=== PATIENT | female | born 1985 | race Caucasian/White ===

== ENCOUNTER 2018-10-14 20:11 | Emergency (ER) | payer OTHER ==
[2018-10-14 20:18] VITALS: BP 130/89; PULSE 83; RESP 18; TEMP 98.3
[2018-10-14] MEDS ORDERED: PROPARACAINE 0.5% OPHTH DROPS 15 ML BTL LEFT EYE STA (20:20)
[2018-10-14] MEDS ORDERED: GENTAMICIN 0.3% OPHTH DROPS 5 ML BTL RIGHT EYE STA (20:39)
[2018-10-14] MEDS ORDERED: TOBRAMYCIN 0.3% OPHTH DROPS 5 ML BTL RIGHT EYE STA (20:40)
--- NOTE | 2018-10-14 20:46 | ED ---
General Adult HPI - General Chief complaint: Eye Problems Stated complaint: Eye injury Time Seen by Provider: 10/14/18 20:20 Source: patient, family, RN notes reviewed, old records reviewed Mode of arrival: ambulatory Limitations: no limitations - History of Present Illness Initial comments: 33-year-old female patient with no pertinent past medical history presents to ED for right corneal abrasion. Patient 38 yesterday she was moving her mattress when slipped, patient reports that while grabbing at she scratched her right eye with her thumb nail. Patient brought that she is having some pain in her right eye. She states that her vision is at baseline. Patient was seen at urgent care and diagnosed a corneal abrasion, she has been recommended to present to ER. Patient is a contact lens user. Patient denies any prior ocular or ophthalmologic issues. Systemic: Pt denies fatigue, myalgia, fever/chills, rash. Pt denies weakness, night sweats, weight loss. Neuro: Pt denies headache, visual disturbances, syncope or pre-syncope. HEENT: Pt denies ocular discharge or irritation, otalgia, rhinorrhea, pharyngitis or notable lymphadenopathy. Cardiopulmonary: Pt denies chest pain, SOB, heart palpitations, dyspnea on exertion. Abdominal/GI: Pt denies abdominal pain, n/v/d. : Pt denies dysuria, burning w/ urination, frequency/urgency. Denies new onset urinary or bowel incontinence. MSK: Pt denies myalgia, loss of strength or function in extremities. Neuro: Pt denies new onset weakness, paresthesias. - Related Data Previous Rx's Medication Instructions Recorded Tobramycin 0.3% Ophth Soln [Tobrex 2 drop RIGHT EYE Q6HR 5 Days #1 10/14/18 0.3% Ophth Soln] bottle Allergies Allergy/AdvReac Type Severity Reaction Status Date / Time No Known Allergies Allergy Verified 10/14/18 20:24 Review of Systems ROS Statement: Those systems with pertinent positive or pertinent negative responses have been documented in the HPI. ROS Other: All systems not noted in ROS Statement are negative. Past Medical History Past Medical History: No Reported History History of Any Multi-Drug Resistant Organisms: None Reported Past Surgical History: Section Additional Past Surgical History / Comment(s): D&C Past Psychological History: No Psychological Hx Reported Smoking Status: Current every day smoker Past Alcohol Use History: Occasional Past Drug Use History: None Reported General Exam - General Exam Comments Initial Comments: Constitutional: NAD, AOX3, Pt has pleasant affect. HEENT: NC/AT, trachea midline, neck supple, no lymphadenopathy. Posterior pharynx non erythematous, without exudates. External ears appear normal, without discharge. Mucous membranes moist. Eyes PERRLA, EOM intact. Mild injection noted towards lateral canthus. Cornea abrasion noted at approximately 7:00. No foreign body noted. There is no scleral icterus. No pallor noted. Cardiopulmonary: RRR, no murmurs, rubs or gallops, no JVD noted. Lungs CTAB in anterior and posterior guevara. No peripheral edema. Abdominal exam: Abdomen soft and non-distended. Abdomen non-tender to palpation in all 4 quadrants. Bowel sounds active in LLQ. No hepatosplenomegaly. No ecchymosis Neuro: CN II-XII grossly intact. No nuchal rigidity. MSK: No posterior calf tenderness bilaterally, homans sign negative bilaterally. Posterior tibialis and radial pulse +2 bilaterally. Sensation intact in upper and lower extremities. Full active ROM in upper and lower extremities, 5/5 stregnth. Limitations: no limitations Course Vital Signs 10/14/18 20:14 Temperature 98.3 F Pulse Rate 83 Respiratory 18 Rate Blood Pressure 130/89 O2 Sat by Pulse 99 Oximetry Medical Decision Making - Medical Decision Making 33-year-old female patient with no pertinent past medical history presents to ED for right corneal abrasion. Patient 38 yesterday she was moving her mattress when slipped, patient reports that while grabbing at she scratched her right eye with her thumb nail. Patient brought that she is having some pain in her right eye. She states that her vision is at baseline. Patient was seen at urgent care and diagnosed a corneal abrasion, she has been recommended to present to ER. Patient is a contact lens user. Patient denies any prior ocular or ophthalmologic issues. Patient was in stable, afebrile. Physical exam displayed: Eyes PERRLA, EOM intact. Mild injection noted towards lateral canthus. Cornea abrasion noted at approximately 7:00. No foreign body noted. There is no scleral icterus. No pallor noted. Patient administered tobramycin drops in ED. Patient discharged with upper mycin and ophthalmology follow-up tomorrow. She will return to ER if condition worsens in any way. Return precautions discussed, patient verbalized understanding. Pt states that she is not . Case discussed with Dr. Pantoja. Disposition Clinical Impression: Corneal abrasion, right Disposition: HOME SELF-CARE Condition: Stable Instructions (If sedation given, give patient instructions): Corneal Abrasion (ED) Additional Instructions: Patient to adhere to previously discussed treatment plan and will take medication(s) as directed. Patient to follow up with PCP in 1-2 days. Patient to return to ED if symptoms do not improve. Follow-up with primary care provider and ophthalmology consult tomorrow. Take medication as directed. Return to ER immediately if condition worsens. No contact lens use until optho follow up. Prescriptions: Tobramycin 0.3% Ophth Soln [Tobrex 0.3% Ophth Soln] 2 drop RIGHT EYE Q6HR 5 Days #1 bottle Is patient prescribed a controlled substance at d/c from ED?: No Referrals: Addis Hooper MD [Primary Care Provider] - 1-2 days Wilbur Honeycutt MD [STAFF PHYSICIAN] - 1-2 days
== END 2018-10-14 20:52 | disposition home or self-care (01) ==
LOC: EC 20:11
DX: S05.01XA Injury of conjunctiva and corneal abrasion without foreign body, right eye, initial encounter (principal); F17.200 Nicotine dependence, unspecified, uncomplicated; W01.198A Fall on same level from slipping, tripping and stumbling with subsequent striking against other object, initial encounter; Y93.89 Activity, other specified
CPT/HCPCS: 99283

== ENCOUNTER → 2020-08-13 | Outpatient (CLI) | payer OTHER ==
--- NOTE | 2020-08-13 12:40 | CONS ---
CONSULTATION DATE OF SERVICE: 08/13/2020. This 35-year-old lady had been evaluated in the sleep center for possible obstructive sleep apnea-hypopnea syndrome. HISTORY OF PRESENT ILLNESS/SLEEP-WAKE EVALUATION: Patient usual sleep schedule on weekdays from 10:30 p.m. to 6 a.m.; on weekends from 11:30 p.m. to 7:30 to 8 a.m. No problems with falling asleep, although she has TV in bedroom. She sleeps on the side position. She snores and has witnessed episodes of stopped breathing during sleep. In the morning, patient wakes up tired, has problems with memory. Goodman Sleepiness Scale is 4. She may take one nap during the day. Usually no vivid dreams during the nap. No history of hypnagogic hallucinations or sleep paralysis or cataplexy. PAST MEDICAL HISTORY: Positive for headaches, acid reflux, and asthma. SOCIAL HISTORY: Positive for smoking, presently trying to quit smoking 1-2 cigarettes a day. Alcohol consumption occasional. MEDICATIONS: None at the present time. FAMILY HISTORY: Hypertension, cancer. REVIEW OF SYSTEMS: Snoring, episodes of stopped breathing during sleep. PHYSICAL EXAMINATION: GENERAL: lady without distress. VITAL SIGNS: BP 117/69, HR 82, RR 12, height 5 feet 5 inches, Weight 163.4, BMI 27, temperature 98.3, oxygen saturation at room air 98%. HEENT: PERRLA, EOMI. Oropharynx low position of soft palate. Mallampati 3-4. NECK: 14 inches in circumference. LUNGS: Clear to percussion and to auscultation. Good air exchange. No wheezing or rhonchi. HEART: S1, S2 regular. No murmurs, gallops, or rubs. ABDOMEN: Soft and nontender. Bowel sounds are present. No organomegaly appreciated. EXTREMITIES: No clubbing or cyanosis. HULL AND DECK REMOVER: Awake, alert, and oriented X3. Cranial nerves 2 to 7 intact. There is no fasciculation or atrophy. noted. No focal deficits observed. IMPRESSION: 1. Snoring, witnessed episodes of stopped breathing during sleep, low position of soft palate, Mallampati 3-4, obstructive sleep apnea-hypopnea syndrome. 2. Headaches. 3. Acid reflux. 4. History of asthma. 5. Status post . PLAN: 1. Home sleep apnea test to confirm obstructive sleep apnea-hypopnea syndrome. 2. CPAP/BiPAP titration if sleep study confirms obstructive sleep apnea-hypopnea syndrome. 3. Preferable position during sleep on the side. 4. No driving if patient feels any sleepiness. 5. I will see patient for follow up visit to explain results of testing and following plan. Thank you very much for referring this patient for consultation. Sincerely, Adalberto Melvin MD, PhD, FAASM Diplomat of [employer] Gas Manager of [facility] MMODL / IJN: [id number] /
== END ==
LOC: SLEEP 10:50
PROVIDERS: ATTEND Internal Medicine
DX: G47.33 Obstructive sleep apnea (adult) (pediatric) (principal); R51.9 Headache, unspecified; K21.9 Gastro-esophageal reflux disease without esophagitis; J45.909 Unspecified asthma, uncomplicated; Z98.890 Other specified postprocedural states; F17.210 Nicotine dependence, cigarettes, uncomplicated
CPT/HCPCS: 99211

== ENCOUNTER → 2020-11-05 | Outpatient (CLI) | payer OTHER ==
--- NOTE | 2020-11-05 20:21 | SFUN ---
SLEEP CENTER FOLLOW UP NOTE DATE OF SERVICE: 11/05/2020 35 -year-old lady who has been followed in Sleep Center to discuss results of the sleep study and following plan. I discussed results of sleep study with patient in details. Respiratory channel showed 27 apneas which included 17 central apneas, 9 obstructive apneas and 1 unclassified apnea and 38 hypopneas with total apnea-hypopnea index 8 with 474 episodes of snoring events. Patient continued to have sleepiness during the day. Hilliard Sleepiness Scale today is 10. Episodes of headaches, acid reflux. PHYSICAL EXAMINATION: GENERAL: Patient in no distress. BP 121/71, HR 77, RR 15, height 5 feet 5-1/4 inches, weight 160.6, BMI 26.4, temperature 97.8, oxygen saturation at room air 99%. Oropharynx low position of soft palate, Mallampati 3-4. NECK: Supple, no JVD. Thyroid is not palpable. LUNGS: Clear to percussion and to auscultation. Good air exchange. No wheezing or rhonchi. HEART: S1, S2 regular. No murmurs, gallops, or rubs. ABDOMEN: Soft and nontender. Bowel sounds are present. No organomegaly appreciated. EXTREMITIES: No clubbing or cyanosis. TELESALES CONSULTANT: Awake, alert, and oriented X3. Cranial nerves 2 to 7 intact. There is no fasciculation or atrophy. noted. No focal deficits observed. IMPRESSION: 1. Obstructive sleep apnea-hypopnea syndrome in mild range with daytime sleepiness. 2. Headaches. 3. Acid reflux. 4. History of asthma. 5. Status post . PLAN: 1. Patient will be started on treatment with AutoPAP and to use equipment every night for the whole night. 2. Sleep hygiene with regular time in bed for 7-1/2 to 8 hours. 3. No driving if feeling sleepiness. 4. Follow-up visit. The patient will be started on treatment with CPAP to evaluate clinical response on treatment, compliance with treatment and make any adjustments with the mask, fitting, pressure and humidification. Adalberto Melvin MD, PhD, FAASM Diplomat of [employer] Financial Sales Representative of [facility] MMODL / IJN: [id number] /
== END | disposition home or self-care (01) ==
LOC: SLEEP 10:40
PROVIDERS: ATTEND Internal Medicine
DX: G47.33 Obstructive sleep apnea (adult) (pediatric) (principal); J45.909 Unspecified asthma, uncomplicated; K21.9 Gastro-esophageal reflux disease without esophagitis; Z98.890 Other specified postprocedural states

== ENCOUNTER 2022-11-05 10:52 | Emergency (ER) | payer OTHER ==
[2022-11-05 10:57] VITALS: RESP 20; TEMP 98.1
[2022-11-05] MEDS ORDERED: SODIUM CHLORIDE 0.9% 1,000 ML IV STA (11:09)
[2022-11-05] MEDS ORDERED: ONDANSETRON 4 MG/2 ML VIAL IVP STA (11:09)
[2022-11-05 12:02] LABS: Basophils % (A) 0 %; Eosinophils # (A) 0.2 k/uL (0-0.7); Eosinophils % (A) 3 %; HCT 44.3 % (34.0-46.0); HGB 14.5 gm/dL (11.4-16.0); Lymphocytes # (A) 1.1 k/uL (1.0-4.8); Lymphocytes % (A) 16 %; MCH 31.1 pg (25.0-35.0); MCHC 32.8 g/dL (31.0-37.0); MCV 94.8 fL (80.0-100.0); Mean Platelet Volume 8.6; Monocytes # (A) 0.4 k/uL (0-1.0); Monocytes % (A) 6 %; Neutrophils # (A) 5.2 k/uL (1.3-7.7); Neutrophils % (A) 73 %; Platelet Count 294 k/uL (150-450); RBC 4.67 m/uL (3.80-5.40); RDW 12.5 % (11.5-15.5); WBC 7.2 k/uL (3.8-10.6)
[2022-11-05 12:12] LABS: Appearance,Urine Cloudy (Clear); Bacteria,Urine Occasional /hpf; Bilirubin,Urine Negative (Negative); Blood,Urine Small (Negative); Color,Urine Yellow; Glucose,Urine (UA) Negative (Negative); Ketones,Urine Negative (Negative); Leukocyte Esterase,Urine Negative (Negative); Mucus,Urine Few /hpf; Nitrite,Urine Negative (Negative); PH, Urine 5.5 (5.0-8.0); Protein,Urine Negative (Negative); RBC,Urine 1 /hpf (0-5); Specific Gravity,Urine 1.024 (1.001-1.035); Squamous Epithelial Cell,Urine 10 /hpf (0-4); Urobilinogen,Urine <2.0 mg/dL (<2.0); WBC,Urine 3 /hpf (0-5)
[2022-11-05 12:16] LABS: ALT 29 U/L (4-34); AST 27 U/L (14-36); African American GFR (CKD) >90 (>60 ml/min/1.73 sqM); Albumin 4.8 g/dL (3.5-5.0); Alkaline Phosphatase 65 U/L (38-126); Amylase 43 U/L (30-110); Anion Gap 9 mmol/L; Blood Urea Nitrogen 15 mg/dL (7-17); Calcium 9.3 mg/dL (8.4-10.2); Carbon Dioxide 25 mmol/L (22-30); Chloride 103 mmol/L (98-107); Glucose 105 mg/dL (74-99); Lipase 123 U/L (23-300); Non-African American GFR(CKD) >90 (>60 ml/min/1.73 sqM); Potassium 4.1 mmol/L (3.5-5.1); Sodium 137 mmol/L (137-145); Total Bilirubin 0.6 mg/dL (0.2-1.3); Total Protein 8.3 g/dL (6.3-8.2)
--- NOTE | 2022-11-05 12:20 | ED ---
General Adult HPI - General Chief complaint: Abdominal Pain Stated complaint: back pain - sent by urgent care Time Seen by Provider: 11/05/22 10:58 Source: patient, RN notes reviewed Mode of arrival: ambulatory Limitations: no limitations - History of Present Illness Initial comments: 37-year-old female presents emergency department chief complaint of right flank pain. Patient states that it started yesterday as a mild pain but has progressively gotten worse. She states that the pain occasionally radiates into the groin. She states that she is unable to get comfortable. She also reports associated nausea without vomiting. She states that she went to urgent care earlier today and states that there was blood in her urine there on UA which she states is not visible. She denies fever, chills, urinary frequency, dysuria. - Related Data Home Medications Medication Instructions Recorded Confirmed No Known Home Medications 11/05/22 11/05/22 Allergies Allergy/AdvReac Type Severity Reaction Status Date / Time No Known Allergies Allergy Verified 11/05/22 12:53 Review of Systems ROS Statement: Those systems with pertinent positive or pertinent negative responses have been documented in the HPI. ROS Other: All systems not noted in ROS Statement are negative. Past Medical History Past Medical History: No Reported History History of Any Multi-Drug Resistant Organisms: None Reported Past Surgical History: Section Additional Past Surgical History / Comment(s): D&C Past Psychological History: No Psychological Hx Reported Smoking Status: Current some day smoker Past Alcohol Use History: Occasional Past Drug Use History: None Reported General Exam Limitations: no limitations General appearance: alert, in no apparent distress Head exam: Present: atraumatic, normocephalic, normal inspection Eye exam: Present: normal appearance, PERRL, EOMI. Absent: scleral icterus, conjunctival injection, periorbital swelling ENT exam: Present: normal exam, mucous membranes moist Neck exam: Present: normal inspection. Absent: tenderness, meningismus, lymphadenopathy Respiratory exam: Present: normal lung sounds bilaterally. Absent: respiratory distress, wheezes, rales, rhonchi, stridor Cardiovascular Exam: Present: regular rate, normal rhythm, normal heart sounds. Absent: systolic murmur, diastolic murmur, rubs, gallop, clicks GI/Abdominal exam: Present: soft, tenderness, normal bowel sounds. Absent: distended, guarding, rebound, rigid Extremities exam: Present: normal inspection, full ROM, normal capillary refill. Absent: tenderness, pedal edema, joint swelling, calf tenderness Back exam: Present: normal inspection Neurological exam: Present: alert, oriented X3 Psychiatric exam: Present: normal affect, normal mood Skin exam: Present: warm, dry, intact, normal color. Absent: rash Course Vital Signs 11/05/22 11/05/22 11/05/22 10:54 11:52 15:18 Temperature 98.1 F Pulse Rate 90 85 Respiratory 20 20 Rate Blood Pressure 143/96 131/85 135/90 O2 Sat by Pulse 99 97 Oximetry Medical Decision Making - Medical Decision Making Was pt. sent in by a medical professional or institution (, PA, MILKING WORKER, urgent care, hospital, or jail...) When possible be specific @ -No Did you speak to anyone other than the patient for history (EMS, parent, family, police, friend...)? What history was obtained from this source @ -No Did you review nursing and triage notes (agree or disagree)? Why? @ -I reviewed and agree with nursing and triage notes Were old charts reviewed (outside hosp., previous admission, EMS record, old EKG, old radiological studies, urgent care reports/EKG's, jail records)? Report findings @ -No old charts were reviewed Differential Diagnosis (chest pain, altered mental status, abdominal pain women, abdominal pain men, vaginal bleeding, weakness, fever, dyspnea, syncope, headache, dizziness, GI bleed, back pain, seizure, CVA, palpatations, mental health, musculoskeletal)? @ -Differential Abdominal Pain Women: Appendicitis, Cholecystitis, diverticulosis, ischemic bowel, pancreatitis, hepatitis, UTI, gastroenteritis, AAA, incarcerated hernia, bowel obstruction, constipation, inflammatory bowel, hepatitis, peptic ulcer disease, splenic infarction, perforated viscus, vulvitis, ovarian torsion, PID, kidney stone, placenta abruption, this is not meant to be an all-inclusive list EKG interpreted by me (3pts min.). @ -None X-rays interpreted by me (1pt min.). @ -None done CT interpreted by me (1pt min.). @ -CT abdomen and pelvis without contrast showed no hydronephrosis or nephrolithiasis, asymmetric prominence of the right ovary for which pelvic ultrasound is recommended, diverticulosis without evidence of diverticulitis, small hiatal hernia with mild distal wall esophageal thickening U/S interpreted by me (1pt. min.). @ -Pelvic ultrasound showed complex lesion on the right ovary radiologist recommended short-term follow-up following next normal menstrual period What testing was considered but not performed or refused? (CT, X-rays, U/S, labs)? Why? @ -None What meds were considered but not given or refused? Why? @ -pain medication was considered but patient did not want any when asked or rechecked Did you discuss the management of the patient with other professionals (professionals i.e. , PA, MILKING WORKER, lab, RT, psych nurse, executive secretary social welfare, insulating machine operator, teacher, community liaison officer, piano case maker)? Give summary @ -No Was smoking cessation discussed for >3mins.? @ -No Was critical care preformed (if so, how long)? @ -No Were there social determinants of health that impacted care today? How? (Homelessness, low income, unemployed, alcoholism, drug addiction, transportation, low edu. Level, literacy, decrease access to med. care, long-term, rehab)? @ -No Was there de-escalation of care discussed even if they declined (Discuss DNR or withdrawal of care, Hospice)? DNR status @ -No What co-morbidities impacted this encounter? (DM, HTN, Smoking, COPD, CAD, Cancer, CVA, ARF, Chemo, Hep., AIDS, mental health diagnosis, sleep apnea, morbid obesity)? @ -None Was patient admitted / discharged? Hospital course, mention meds given and route, prescriptions, significant lab abnormalities, going to OR and other pertinent info. @ -Discharged. Patient presented to the emergency department with chief complaint of right flank pain radiating to the lower abdomen. Patient given dose of zofran IV and 1L of fluids and reported improvement in her symptoms. CBC, CMP within normal limits. UA showed small blood, will send for culture. CT abd pelvis showed no evidence for nephrolithiasis, asymmetric prominence of the right ovary for which the radiologist recommended pelvic ultrasound. US showed possible complex lesion on right ovary and recommended follow up. Discussed results of imaging with patient. Patient advised to follow up with gynecology and information was given. Patient discharged in stable condition. Case discussed with my attending, Dr. Angulo. Undiagnosed new problem with uncertain prognosis? @ -No Drug Therapy requiring intensive monitoring for toxicity (Heparin, Nitro, Insulin, Cardizem)? @ -No Were any procedures done? @ -No Diagnosis/symptom? @ -abdominal pain Acute, or Chronic, or Acute on Chronic? @ -acute Uncomplicated (without systemic symptoms) or Complicated (systemic symptoms)? @ -Uncomplicated Side effects of treatment? @ -No Exacerbation, Progression, or Severe Exacerbation? @ -No Poses a threat to life or bodily function? How? (Chest pain, [place], [place], pneumonia, PE, COPD, DKA, ARF, appy, cholecystitis, CVA, Diverticulitis, Homicidal, Suicidal, threat to staff... and all critical care pts) @ -No - Lab Data Result diagrams: 11/05/22 11:46 11/05/22 11:46 Lab Results 11/05/22 11/05/22 11/05/22 Range/Units 11:46 11:46 11:46 WBC 7.2 (3.8-10.6) k/uL RBC 4.67 (3.80-5.40) m/uL Hgb 14.5 (11.4-16.0) gm/dL Hct 44.3 (34.0-46.0) % MCV 94.8 (80.0-100.0) fL MCH 31.1 (25.0-35.0) pg MCHC 32.8 (31.0-37.0) g/dL RDW 12.5 (11.5-15.5) % Plt Count 294 (150-450) k/uL MPV 8.6 Neutrophils % 73 % Lymphocytes % 16 % Monocytes % 6 % Eosinophils % 3 % Basophils % 0 % Neutrophils # 5.2 (1.3-7.7) k/uL Lymphocytes # 1.1 (1.0-4.8) k/uL Monocytes # 0.4 (0-1.0) k/uL Eosinophils # 0.2 (0-0.7) k/uL Basophils # 0.0 (0-0.2) k/uL Sodium (137-145) mmol/L Potassium (3.5-5.1) mmol/L Chloride (98-107) mmol/L Carbon Dioxide (22-30) mmol/L Anion Gap mmol/L BUN (7-17) mg/dL Creatinine (0.52-1.04) mg/dL Est GFR (CKD-EPI)AfAm (>60 ml/min/1.73 sqM) Est GFR (CKD-EPI)NonAf (>60 ml/min/1.73 sqM) Glucose (74-99) mg/dL Calcium (8.4-10.2) mg/dL Total Bilirubin (0.2-1.3) mg/dL AST (14-36) U/L ALT (4-34) U/L Alkaline Phosphatase (38-126) U/L Total Protein (6.3-8.2) g/dL Albumin (3.5-5.0) g/dL Amylase (30-110) U/L Lipase (23-300) U/L Urine Color Yellow Urine Appearance Cloudy H (Clear) Urine pH 5.5 (5.0-8.0) Ur Specific Ingraham 1.024 (1.001-1.035) Urine Protein Negative (Negative) Urine Glucose (UA) Negative (Negative) Urine Ketones Negative (Negative) Urine Blood Small H (Negative) Urine Nitrite Negative (Negative) Urine Bilirubin Negative (Negative) Urine Urobilinogen <2.0 (<2.0) mg/dL Ur Leukocyte Esterase Negative (Negative) Urine RBC 1 (0-5) /hpf Urine WBC 3 (0-5) /hpf Ur Squamous Epith Cells 10 H (0-4) /hpf Urine Bacteria Occasional H (None) /hpf Urine Mucus Few H (None) /hpf Urine HCG, Qual Not Detected (Not Detectd) 11/05/22 Range/Units 11:46 WBC (3.8-10.6) k/uL RBC (3.80-5.40) m/uL Hgb (11.4-16.0) gm/dL Hct (34.0-46.0) % MCV (80.0-100.0) fL MCH (25.0-35.0) pg MCHC (31.0-37.0) g/dL RDW (11.5-15.5) % Plt Count (150-450) k/uL MPV Neutrophils % % Lymphocytes % % Monocytes % % Eosinophils % % Basophils % % Neutrophils # (1.3-7.7) k/uL Lymphocytes # (1.0-4.8) k/uL Monocytes # (0-1.0) k/uL Eosinophils # (0-0.7) k/uL Basophils # (0-0.2) k/uL Sodium 137 (137-145) mmol/L Potassium 4.1 (3.5-5.1) mmol/L Chloride 103 (98-107) mmol/L Carbon Dioxide 25 (22-30) mmol/L Anion Gap 9 mmol/L BUN 15 (7-17) mg/dL Creatinine 0.73 (0.52-1.04) mg/dL Est GFR (CKD-EPI)AfAm >90 (>60 ml/min/1.73 sqM) Est GFR (CKD-EPI)NonAf >90 (>60 ml/min/1.73 sqM) Glucose 105 H (74-99) mg/dL Calcium 9.3 (8.4-10.2) mg/dL Total Bilirubin 0.6 (0.2-1.3) mg/dL AST 27 (14-36) U/L ALT 29 (4-34) U/L Alkaline Phosphatase 65 (38-126) U/L Total Protein 8.3 H (6.3-8.2) g/dL Albumin 4.8 (3.5-5.0) g/dL Amylase 43 (30-110) U/L Lipase 123 (23-300) U/L Urine Color Urine Appearance (Clear) Urine pH (5.0-8.0) Ur Specific Ingraham (1.001-1.035) Urine Protein (Negative) Urine Glucose (UA) (Negative) Urine Ketones (Negative) Urine Blood (Negative) Urine Nitrite (Negative) Urine Bilirubin (Negative) Urine Urobilinogen (<2.0) mg/dL Ur Leukocyte Esterase (Negative) Urine RBC (0-5) /hpf Urine WBC (0-5) /hpf Ur Squamous Epith Cells (0-4) /hpf Urine Bacteria (None) /hpf Urine Mucus (None) /hpf Urine HCG, Qual (Not Detectd) Disposition Clinical Impression: Flank pain Disposition: HOME SELF-CARE Condition: Stable Additional Instructions: Follow up with DIRECTOR DATA MANAGEMENT on an outpatient basis for further evaluation. Return to the emergency department for new or worsening symptoms. Is patient prescribed a controlled substance at d/c from ED?: No Referrals: None,Stated [REFERRING] - 1-2 days Bia Alves DO [Doctor of Osteopathic Medicine] - 1-2 days Time of Disposition: 15:07
--- NOTE | 2022-11-05 12:59 | CT ---
EXAMINATION TYPE: CT abdomen pelvis wo con DATE OF EXAM: 11/05/2022 COMPARISON: None HISTORY: right flank pain, heamturia CT DLP: 498 mGycm Automated exposure control for dose reduction was used. TECHNIQUE: Helical acquisition of images was performed from the lung bases through the pelvis. FINDINGS: LUNG BASES: Lungs are clear but there is a 3 mm subpleural nodule right lower lobe. No pleural effusi on. LIVER/GB: No significant abnormality is appreciated. PANCREAS: No significant abnormality is seen. SPLEEN: No significant abnormality is seen. ADRENALS: No significant abnormality is seen. KIDNEYS: No significant abnormality is seen. FREE AIR: No free air is visualized URINARY BLADDER: No significant abnormality is seen. ADENOPATHY: None visualized. OSSEOUS STRUCTURES: Mild hypertrophic changes of the spine. BOWEL: Diverticulosis but no CT evidence of diverticulitis. Appendix normal. Small hiatal hernia wit h mild wall thickening distal esophagus. OTHER: Aorta normal caliber. There is a retroaortic left renal vein. There does appear to be asymmetr ic right ovary. Prominent IMPRESSION: 1. No hydronephrosis or nephrolithiasis. 2. There is asymmetric prominence of the right ovary for which pelvic ultrasound recommended. 3. Diverticulosis but no CT evidence of diverticulitis. 4. Small hiatal hernia with mild distal wall esophageal thickening associated with reflux esophagitis correlate clinically.
--- NOTE | 2022-11-05 14:18 | US ---
EXAMINATION TYPE: US transvaginal DATE OF EXAM: 11/05/2022 COMPARISON: CT 11/05/22 CLINICAL INDICATION: Female, 37 years old with history of asymmetric rt ovary on CT; Asymmetric right ovary on CT. Patient has some intermittent pain on the right side. TECHNIQUE: Transvaginal (TV). Date of LMP: 10/28/22 EXAM MEASUREMENTS: Uterus: 7.9 x 4.5 x 3.5 cm Endometrial Stripe: 0.42 cm Right Ovary: 4.5 x 2.9 x 2.4 cm Left Ovary: 3.8 x 2.5 x 2.1 cm 1. Uterus: Anteverted 2. Endometrium: Measures 0.42 cm 3. Right Ovary: Complex somewhat hypoechoic lesion seen: 2.7 x 2.3 x 1.6 cm. 4. Left Ovary: Peripherally located Follicles. Spectral, color and waveform doppler imaging shows arterial and venous flow within the ovaries. 5. Bilateral Adnexa: Appear wnl 6. Posterior cul-de-sac: Appears wnl IMPRESSION: 1. Complex left ovarian lesion could be a complex cyst. Short-term follow-up following the next joel l menstrual period is recommended. This should be followed to clearing.
[2022-11-05 15:19] VITALS: BP 135/90; PULSE 85
== END 2022-11-05 15:20 | disposition home or self-care (01) ==
LOC: EC 10:52
DX: K44.9 Diaphragmatic hernia without obstruction or gangrene (principal); K21.00 Gastro-esophageal reflux disease with esophagitis, without bleeding; F17.200 Nicotine dependence, unspecified, uncomplicated
CPT/HCPCS: 36415; 80053; 82150; 83690; 85025; 81001; 81025; 93975; 76830; 74176; 99284; 96374; 96361; J2405

== ENCOUNTER → 2023-12-09 | Outpatient (CLI) | payer OTHER ==
--- NOTE | 2023-12-13 08:00 | MM ---
Reason for Exam: Screening (asymptomatic). Baseline mammogram. Patient History: Menarche at age 11. First Full-Term at age 25. Last menstrual period: 12/06/2023 Risk Values: Jess 5 year model risk: 0.6%. NCI Lifetime model risk: 11.1%. Prior Study Comparison: Patient's first Mammogram. Tissue Density: The breasts are heterogeneously dense, which may obscure small masses. Findings: Analyzed By CAD. There is no suspicious group of microcalcifications or new suspicious mass in either breast. Overall Assessment: Negative, BI-RAD 1 Management: Screening Mammogram of both breasts in 1 year. . Patient should continue monthly self-breast exams. A clinical breast exam by your physician is recommended on an annual basis. This exam should not preclude additional follow-up of suspicious palpable abnormalities. Note on Jess scores and lifetime risk: 1. A Jess score greater than 3% is considered moderate risk. If this is the case, consider specialist referral to assess eligibility for a risk reducing agent. 2. If overall lifetime risk for the development of breast cancer is 20% or higher, the patient may qualify for future screening with alternating mammogram and breast MRI. Electronically signed and approved by: Ricco Rob M.D. [facility]olog[facility]
== END | disposition home or self-care (01) ==
LOC: RADMAMWWP 09:09
PROVIDERS: ATTEND Obstetrics & Gynecology
DX: Z12.31 Encounter for screening mammogram for malignant neoplasm of breast (principal); R92.333 Mammographic heterogeneous density, bilateral breasts
CPT/HCPCS: 77063; 77067